=== PATIENT | female | born 1950 | race Caucasian/White ===

== ENCOUNTER 2017-05-18 11:20 | Observation (INO) | payer OTHER, MEDICARE ==
[~2017-05-18] VITALS: Ht 160 cm; Wt 53.5 kg
[~2017-05-18 11:20] MED LIST: CYCLOBENZAPRINE5 MG PO; DEGLUDEC SC; HUMALOG100 U/ML SC; INVOKANA100 MG PO; LANTUS INS100 UNITS/ SC; LEVAQUIN LEVA-750 MG PO; LEVOTHYROXIN0.175 MG PO; LIPITOR40 MG PO; LISINOPRIL AND1 TAB PO; LISINOPRIL/HCTZ1 TA3 PO; Novolog100 U/ML SC; PRAVASTATIN 40M40 MG PO; PREDNISONE 20MG20 MG PO; SYNTHROID0.2 MG PO
[2017-05-18 11:22] VITALS: BP 141/59
[2017-05-18 11:37] LABS: LYMPH # 2.7 K/mm3 (0.7-4.5); LYMPH % 22.7 % (10-50.0)
[2017-05-18 11:42] LABS: HEMOGLOBIN 16.2 g/dL (12.2-16.2)
[2017-05-18 12:01] LABS: BUN 31 mg/dL (7-18)
[2017-05-18 12:08] LABS: GFR (ESTIMATED) 56 ML/MIN (59-)
--- OUTSIDE RECORDS SUMMARY | 2017-05-18 12:20 | External Medical Summary Rpt ---
Demographics Preferred Language Telugu Marital Status Unknown Restorationism Affiliation Unknown Race Unknown Ethnic Group Unknown Author Author MIREYA Address Unknown Phone Immunization No patient found.
--- OUTSIDE RECORDS SUMMARY | 2017-05-18 12:20 | External Medical Summary Rpt ---
Demographics Preferred Language Yi Marital Status Unknown Congregational Affiliation Unknown Race Unknown Ethnic Group Unknown Author Author MIREYA Address Unknown Phone Immunization No patient found.
--- OUTSIDE RECORDS SUMMARY | 2017-05-18 12:20 | External Medical Summary Rpt ---
Author Author [employer] Organization [employer] Address Unknown Phone Unavailable Purpose Continuity of Care Document - through 2016
--- OUTSIDE RECORDS SUMMARY | 2017-05-18 12:20 | External Medical Summary Rpt ---
Author Author MIREYA Koenig, [employer] Organization [employer] Address Unknown Phone Unavailable
--- OUTSIDE RECORDS SUMMARY | 2017-05-18 12:20 | External Medical Summary Rpt ---
Author Author MIREYA Address Unknown Phone [email or web address] Purpose Continuity of Care Document - through 2016
--- OUTSIDE RECORDS SUMMARY | 2017-05-18 12:20 | External Medical Summary Rpt ---
Author Author MIREYA Address Unknown Phone Purpose Continuity of Care Document - through 2016
--- NOTE | 2017-05-18 12:25 | Emergency Room Report ---
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 PT IS TYPE 1 DIABETIC AND ADVISED THIS MORNING HER SUGAR WAS HIGH. Onset of symptoms date/time:/ or onset unknown for:MEDICAL HX UNKNOWN Treatment Prior to Arrival: 20 G IN THE LEFT AC WITH LABS DRAWN. 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 N Clinical Suspician of Infection? N Mental Status: 1 - Regular (Normal Baseline) Sepsis Risk:Low Sepsis Risk Have you (or family members/close friends) recently traveled outside the [place]? N If Yes, where/when: Have you had exposure to infectious disease within the past month? N TB? Other? Specify: Source patient, RN notes reviewed, family, RN/MD Exam Limitations no limitations Comment This is a 67-year-old lady presenting to the emergency room with bilateral shoulder pain followed by a near syncopal episode, while at work. 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 She has seen Dr. Tunde Rodriguez in the past, approximately one year ago, and she was advised to undergo a cardiac catheterization, which patient did not have yet ( due to her refusal). Cardiac Chest Pain Chest pain indicative of cardiac Yes Timing/Duration 1-3 hours, constant Severity/Quality moderate Location central Chest Pain Radiation shoulder(s) Activities at Onset light activity Modifying Factors worse with exercise, improves with lying down, improves with oxygen, worse with palpation, improves with rest Nitro Today/Relief no nitro taken today Aspirin Treatment Today no aspirin today Beta char treatment today no beta char taken Cardiac risk factors Diabetes, + family history, HTN controlled, high stress Prior Workup/Intervention no prior chest pain Timing/Duration this morning Severity severe Modifying Factors Improves With: rest. Worsens With: breathing, exertion, movement, palpatioin. ALLERGIES Coded Allergies: codeine (ITCHING 05/18/17) Home Medications Reported Medications Empagliflozin (Jardiance) 25 MG PO DAILY Biotin 1,000 MCG PO DAILY Aspirin (Adult Low Dose Aspirin EC) 81 MG PO DAILY Chromium Picolinate 400 MCG PO BID Cyanocobalamin (Vitamin B-12) (Vitamin B12) 2,500 MCG PO DAILY Cholecalciferol (Vitamin D3) (Vitamin D3) 4,000 UNIT PO DAILY MAGNESIUM OXIDE (Magnesium) 500 MG PO DAILY ZINC GLUCONATE (ZINC) 140 MG PO DAILY ASCORBIC ACID (Vitamin C) 500 MG PO DAILY Atorvastatin Calcium (Atorvastatin) 40 MG PO DAILY Levothyroxine Sodium (Levothyroxine 0.175MG) 0.175 MG PO DAILY #30 Insulin Lispro, Recombinant (Humalog 100 UNITS/ML 10ML) 0 UNITS SC ACHS #10 Insulin Glargine,Hum.rec.anlog (Basaglar Kwikpen U-100) 16 UNIT SQ QHS Prasterone (Dhea)/Calcium Carb (Dhea 50 MG Tablet) 1 EACH PO DAILY VITAMIN A (Vitamin A) 25,000 PO DAILY Vitamin E (Vitamin E 400 UNITS) 400 IUNITS PO DAILY Selenium 200 MCG PO DAILY CALCIUM CARBONATE (Calcium) 600 MG PO QHS Discontinued Reported Medications LISINOPRIL/HYDROCHLOROTHIAZIDE (Lisinopril-Hctz 20-12.5 MG Tab) 1 TAB PO BID History Medical History General CAD? No Angina: No [place]: No Hypertension? Yes Hyperlipidemia? Yes CHF? No DVT? No PE? No COPD? No Asthma? No Anemia? No GERD? No Gastric ulcers? No GI Bleed? No Hernia? Yes Thyroid Problems? Yes Hypothyroidism? Yes CVA? No Seizures? No Diabetes? Yes Insulin Dependent: Yes Insulin Pump: No Home FSBS? Yes Renal Insuffiency? No End Stage Renal Disease? No UTI? No Stones? No GB Disease: Yes Nephritic Syndrome? No Asplenia? No Hepatitis? No Sickle Cell Disease? No Arthritis? Yes Migraines? No Cataracts? Yes Glaucoma? No MRSA? No HIV? No TB? No Anxiety? No Depression? Yes Cancer? No Immunization Hx DT/Tetanus Unknown Flu 2016-17FSN Pneumonia Received In Past Surgical Hx Previous Surgery?Y EVANGELINA APPENDECTOMY HERNIATED UMBILICUS Tubal Ligation T&A TUMOR REMOVED FROM CHEST WALL Cholecystectomy Family History Family Hx Diabetes No CAD Yes Hypertension Yes Hyperlipidemia No Cancer No TB No Social History Smoking Hx Smoker: Current Every Day Smoker Tobacco: Yes Type Cigarettes Packs/day < 1 Pack Alcohol Alcohol: No Review of Systems All Other Systems Reviewed and Negative Cardiovascular chest pain Physical Exam Vital Signs Vital Signs Date Time Temp Pulse Resp B/P Pulse O2 O2 Flow FiO2 Ox Delivery Rate 05/18 1643 98.2 84 16 119/59 98 05/18 1556 84 16 119/59 98 05/18 1529 84 16 115/60 98 05/18 1442 84 16 134/71 98 05/18 1321 84 16 121/61 98 05/18 1242 84 16 116/49 98 05/18 1206 84 16 104/53 98 05/18 1122 98.2 84 16 141/59 98 General Appearance normal appearance, WD/WN Neck normal inspection, non-tender, supple, full range of motion Respiratory Status Yes: trachea midline, chest symmetrical, non tender chest. No: respiratory distress. Lung Sounds bilateral: normal breath sounds, lungs clear. Cardiovascular normal exam, regular rate/rhythm, no peripheral edema, no gallop, no JVD, no murmur, no rub, normal peripheral pulses Gastrointestinal normal bowel sounds, normal exam, non tender, soft, no organomegaly Extremities non-tender, normal range of motion, normal inspection Neurologic alert, nba player II-XII nml as tested, normal exam, oriented x 3 Mental status normal mood/affect Skin intact, normal color, warm/dry Medical Decision Making LABS/Meds/Orders Pt receiving controlled substance in ED? No Comment 1215pm - discussed with Dr. Ramirez, advised the patient presentation and findings, we will with hospitalization. Dr. carter requested cardiology consult. 12:16pm - discussed with cardiology ([facility]) who will examine patient emergency room prior to admission. Care transferred to Dr. Jennifer Ramirez at this time. I will write temporary, bridge, admission orders per hospital protocol. Upon patient's arrival to the floor in the unit nurse will contact both transition mgr rn and PCP in order to obtain full inpatient admission orders. Upon reevaluation patient is chest pain-free, denies any further complaints including shortness of breath. Results/Orders Laboratory Tests 05/18/17 1408: Creatine Kinase 158, CK-MB (CK-2) Rel Index 6.1 H, CK and CKMB Interp 9.7 *H, Troponin I < 0.02 05/18/17 1115: Hemoglobin A1c 7.3 H 05/18/17 1115: Sodium 141, Potassium 4.1, Chloride 102, Carbon Dioxide 31, BUN 31 H, Creatinine 1.0, Estimated Creat Clear 46 L, Estimated GFR (MDRD) 56 L, Glucose 141 H, Calcium 9.7, Total Bilirubin 0.5, AST 23, ALT 38, Alkaline Phosphatase 121 H, Creatine Kinase 153, CK-MB (CK-2) Rel Index 6.6 H, CK and CKMB Interp 10.1 *H, Troponin I < 0.02, Total Protein 7.6, Albumin 4.2, Globulin 3.4 H, Albumin/Globulin Ratio 1.2, WBC 11.8 H, RBC 5.12, Hgb 16.2, Hct 48.7 H, MCV 95.1, RDW 12.9, Plt Count 245, MPV 8.6, Gran % 67.1, Gran # 7.9 H, Lymphocytes % 22.7, Monocytes % 6.2, Eosinophils % 3.5, Basophils % 0.6, Lymphocytes # 2.7, Monocytes # 0.7, Eosinophils # 0.4, Basophils # 0.1, PUBS MCHC 33.1, MCH 31.4 H Current Medication Orders Sig/Dipak Start time Last Medication Dose Route Stop Time Status Admin Aspirin 81 MG DAILY 05/20 0900 AC PO Fentanyl Citrate 25 MCG PRN PRN 05/19 1315 AC IV 05/19 2300 Fentanyl Citrate 50 MCG PRN PRN 05/19 1315 AC IV 05/19 2300 Flumazenil 0.2 MG PRN PRN 05/19 1315 AC IV 05/19 2300 Heparin Sodium (Beef 5,000 UNITS PRN PRN 05/19 1315 AC Lung) IV 05/20 1302 Heparin Sodium/ 3,000 UNITS PRN PRN 05/19 1315 Sodium Chloride IV 05/20 1302 Midazolam HCl 1 MG PRN PRN 05/19 1315 AC IV 05/19 2300 Midazolam HCl 1 MG PRN PRN 05/19 1315 AC IV 05/19 2300 Naloxone HCl 0.4 MG [id number] PRN 05/19 1315 AC IV 05/19 2300 Nitroglycerin 800 MCG PRN PRN 05/19 1315 AC IV 05/20 1302 Verapamil HCl 5 MG PRN PRN 05/19 1315 AC IV 05/20 1302 Lidocaine HCl 20 ML ONCE ONE 05/19 0800 DC IJ 05/19 0801 Atorvastatin Calcium 80 MG QHS 05/18 2100 AC 05/18 PO 2146 Diagnostic Test (Pha) 1 EACH W/MEALS&HS 05/18 1700 DC FS 07/17 1659 Diagnostic Test (Pha) 1 EACH W/MEALS&HS 05/18 1700 AC 05/19 FS 07/17 1659 0929 Insulin Human [rDNA See Dose W/MEALS&HS 05/18 1700 AC 05/19 origin] Insts (1) SC 0832 Nicotine 21 MG DAILYP PRN 05/18 1245 AC TD Sodium Chloride 10 ML PRN PRN 05/18 1130 AC IV 05/19 1127 Dose Instructions: (1)Insulin Human [rDNA origin]: SEE ADMIN CRITERIA FOR LOW INTENSITY SS Orders Procedure Date/time Status Schedule Procedure 05/19 UNK Active PREPARE CONSENT 05/19 UNK Active DIET-2000 CALORIE ADA 05/18 D Complete CARDIAC ENZYMES 05/18 2000 Complete CARDIAC ENZYMES 05/18 1400 Complete OP COURTSEY MEAL 05/18 1305 Active Decision to admit 05/18 1231 Active GLYCOHEMOGLOBIN (A1C) 05/18 1217 Complete ELECTROCARDIOGRAM REQUEST 05/18 1128 Active IV SALINE LOCK 05/18 1128 Active CBC WITH AUTO DIFF 05/18 1128 Complete CARDIAC ENZYMES 05/18 1128 Complete CHEM 12 PROFILE 05/18 1128 Complete ADMIT PATIENT 05/18 UNK Active 12 LEAD EKG-BESSON (INITIAL) 05/18 UNK Active PULSE OXIMETRY REQUEST 05/18 UNK Active OXYGEN REQUEST 05/18 UNK Active VITAL SIGNS 05/18 UNK Active TRANSMISSION BUILDER 05/18 UNK Active POM NURSE HARLEY HOSE ORDER 05/18 UNK Active CODE STATUS 05/18 UNK Active PATIENT ACTIVITY ORDER 05/18 UNK Active SPECIALTY CLINIC PHYS CONSULT 05/18 UNK Active 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 of ischemic chgs, no ectopy, normal QRS, normal [place], no EKG for comparison, non-spec. ST/Twave chgs, ST elevation, ST depression, LBBB, RBBB, ectopy, abnormal Q waves XRAY/CT/US XRAY/CT/US XRAY chest XR interpretation by discussed w/radiologist Xray Results no infiltrates, normal heart size, normal lung inflation celio Consult MD Physician Consult Consult/PCP Dr. Rodriguez JORGITO Score for N-Stemi/Angina JORGITO N-STEMI SCORE JORGITO N-STEMI SCORE Response Value Age of patient 65 yrs or more 1 Number of risk factors for CAD Presence of 3 or more 1 Prior coronary artery stenosis (seen in angiography) Less than 50% 0 ST-Segment deviation on ECG (>1 min) Absent 0 Prior aspirin intake No ASA in the last 7 days 0 Severe anginal chest pain No or 1 episode in 24h 0 Elevated cardiac markers(CK-MB or troponin) Absent 0 Total 2 Risk Stratification 0-2= Low Risk Patients Departure Departure Time of Disposition 1228 Disposition Still a Patient Clinical Impression Primary Impression: Chest pain Qualifiers: Chest pain type: unspecified Qualified Code: R07.9 - Chest pain, unspecified Condition STABLE Referrals James LAURENT,[facility] (Family) ED Critical Care Critical Care No at 1101
--- NOTE | 2017-05-18 12:25 | Emergency Room Report ---
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 PT IS TYPE 1 DIABETIC AND ADVISED THIS MORNING HER SUGAR WAS HIGH. Onset of symptoms date/time:/ or onset unknown for:MEDICAL HX UNKNOWN Treatment Prior to Arrival: 20 G IN THE LEFT AC WITH LABS DRAWN. 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 N Clinical Suspician of Infection? N Mental Status: 1 - Regular (Normal Baseline) Sepsis Risk:Low Sepsis Risk Have you (or family members/close friends) recently traveled outside the [place]? N If Yes, where/when: Have you had exposure to infectious disease within the past month? N TB? Other? Specify: Source patient, RN notes reviewed, family, RN/MD Exam Limitations no limitations Comment This is a 67-year-old lady presenting to the emergency room with bilateral shoulder pain followed by a near syncopal episode, while at work. 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 She has seen Dr. Tunde Rodriguez in the past, approximately one year ago, and she was advised to undergo a cardiac catheterization, which patient did not have yet ( due to her refusal). Cardiac Chest Pain Chest pain indicative of cardiac Yes Timing/Duration 1-3 hours, constant Severity/Quality moderate Location central Chest Pain Radiation shoulder(s) Activities at Onset light activity Modifying Factors worse with exercise, improves with lying down, improves with oxygen, worse with palpation, improves with rest Nitro Today/Relief no nitro taken today Aspirin Treatment Today no aspirin today Beta char treatment today no beta char taken Cardiac risk factors Diabetes, + family history, HTN controlled, high stress Prior Workup/Intervention no prior chest pain Timing/Duration this morning Severity severe Modifying Factors Improves With: rest. Worsens With: breathing, exertion, movement, palpatioin. ALLERGIES Coded Allergies: codeine (ITCHING 05/18/17) Home Medications Reported Medications Empagliflozin (Jardiance) 25 MG PO DAILY Biotin 1,000 MCG PO DAILY Aspirin (Adult Low Dose Aspirin EC) 81 MG PO DAILY Chromium Picolinate 400 MCG PO BID Cyanocobalamin (Vitamin B-12) (Vitamin B12) 2,500 MCG PO DAILY Cholecalciferol (Vitamin D3) (Vitamin D3) 4,000 UNIT PO DAILY MAGNESIUM OXIDE (Magnesium) 500 MG PO DAILY ZINC GLUCONATE (ZINC) 140 MG PO DAILY ASCORBIC ACID (Vitamin C) 500 MG PO DAILY Atorvastatin Calcium (Atorvastatin) 40 MG PO DAILY Levothyroxine Sodium (Levothyroxine 0.175MG) 0.175 MG PO DAILY #30 Insulin Lispro, Recombinant (Humalog 100 UNITS/ML 10ML) 0 UNITS SC ACHS #10 Insulin Glargine,Hum.rec.anlog (Basaglar Kwikpen U-100) 16 UNIT SQ QHS Prasterone (Dhea)/Calcium Carb (Dhea 50 MG Tablet) 1 EACH PO DAILY VITAMIN A (Vitamin A) 25,000 PO DAILY Vitamin E (Vitamin E 400 UNITS) 400 IUNITS PO DAILY Selenium 200 MCG PO DAILY CALCIUM CARBONATE (Calcium) 600 MG PO QHS Discontinued Reported Medications LISINOPRIL/HYDROCHLOROTHIAZIDE (Lisinopril-Hctz 20-12.5 MG Tab) 1 TAB PO BID History Medical History General CAD? No Angina: No [place]: No Hypertension? Yes Hyperlipidemia? Yes CHF? No DVT? No PE? No COPD? No Asthma? No Anemia? No GERD? No Gastric ulcers? No GI Bleed? No Hernia? Yes Thyroid Problems? Yes Hypothyroidism? Yes CVA? No Seizures? No Diabetes? Yes Insulin Dependent: Yes Insulin Pump: No Home FSBS? Yes Renal Insuffiency? No End Stage Renal Disease? No UTI? No Stones? No GB Disease: Yes Nephritic Syndrome? No Asplenia? No Hepatitis? No Sickle Cell Disease? No Arthritis? Yes Migraines? No Cataracts? Yes Glaucoma? No MRSA? No HIV? No TB? No Anxiety? No Depression? Yes Cancer? No Immunization Hx DT/Tetanus Unknown Flu 2016-17FSN Pneumonia Received In Past Surgical Hx Previous Surgery?Y EVANGELINA APPENDECTOMY HERNIATED UMBILICUS Tubal Ligation T&A TUMOR REMOVED FROM CHEST WALL Cholecystectomy Family History Family Hx Diabetes No CAD Yes Hypertension Yes Hyperlipidemia No Cancer No TB No Social History Smoking Hx Smoker: Current Every Day Smoker Tobacco: Yes Type Cigarettes Packs/day < 1 Pack Alcohol Alcohol: No Review of Systems All Other Systems Reviewed and Negative Cardiovascular chest pain Physical Exam Vital Signs Vital Signs Date Time Temp Pulse Resp B/P Pulse O2 O2 Flow FiO2 Ox Delivery Rate 05/18 1643 98.2 84 16 119/59 98 05/18 1556 84 16 119/59 98 05/18 1529 84 16 115/60 98 05/18 1442 84 16 134/71 98 05/18 1321 84 16 121/61 98 05/18 1242 84 16 116/49 98 05/18 1206 84 16 104/53 98 05/18 1122 98.2 84 16 141/59 98 General Appearance normal appearance, WD/WN Neck normal inspection, non-tender, supple, full range of motion Respiratory Status Yes: trachea midline, chest symmetrical, non tender chest. No: respiratory distress. Lung Sounds bilateral: normal breath sounds, lungs clear. Cardiovascular normal exam, regular rate/rhythm, no peripheral edema, no gallop, no JVD, no murmur, no rub, normal peripheral pulses Gastrointestinal normal bowel sounds, normal exam, non tender, soft, no organomegaly Extremities non-tender, normal range of motion, normal inspection Neurologic alert, geographical historian II-XII nml as tested, normal exam, oriented x 3 Mental status normal mood/affect Skin intact, normal color, warm/dry Medical Decision Making LABS/Meds/Orders Pt receiving controlled substance in ED? No Comment 1215pm - discussed with Dr. Ramirez, advised the patient presentation and findings, we will with hospitalization. Dr. carter requested cardiology consult. 12:16pm - discussed with cardiology ([facility]) who will examine patient emergency room prior to admission. Care transferred to Dr. Jennifer Ramirez at this time. I will write temporary, bridge, admission orders per hospital protocol. Upon patient's arrival to the floor in the unit nurse will contact both scientific director and PCP in order to obtain full inpatient admission orders. Upon reevaluation patient is chest pain-free, denies any further complaints including shortness of breath. Results/Orders Laboratory Tests 05/18/17 1408: Creatine Kinase 158, CK-MB (CK-2) Rel Index 6.1 H, CK and CKMB Interp 9.7 *H, Troponin I < 0.02 05/18/17 1115: Hemoglobin A1c 7.3 H 05/18/17 1115: Sodium 141, Potassium 4.1, Chloride 102, Carbon Dioxide 31, BUN 31 H, Creatinine 1.0, Estimated Creat Clear 46 L, Estimated GFR (MDRD) 56 L, Glucose 141 H, Calcium 9.7, Total Bilirubin 0.5, AST 23, ALT 38, Alkaline Phosphatase 121 H, Creatine Kinase 153, CK-MB (CK-2) Rel Index 6.6 H, CK and CKMB Interp 10.1 *H, Troponin I < 0.02, Total Protein 7.6, Albumin 4.2, Globulin 3.4 H, Albumin/Globulin Ratio 1.2, WBC 11.8 H, RBC 5.12, Hgb 16.2, Hct 48.7 H, MCV 95.1, RDW 12.9, Plt Count 245, MPV 8.6, Gran % 67.1, Gran # 7.9 H, Lymphocytes % 22.7, Monocytes % 6.2, Eosinophils % 3.5, Basophils % 0.6, Lymphocytes # 2.7, Monocytes # 0.7, Eosinophils # 0.4, Basophils # 0.1, PUBS MCHC 33.1, MCH 31.4 H Current Medication Orders Sig/Dipak Start time Last Medication Dose Route Stop Time Status Admin Aspirin 81 MG DAILY 05/20 0900 AC PO Fentanyl Citrate 25 MCG PRN PRN 05/19 1315 AC IV 05/19 2300 Fentanyl Citrate 50 MCG PRN PRN 05/19 1315 AC IV 05/19 2300 Flumazenil 0.2 MG PRN PRN 05/19 1315 AC IV 05/19 2300 Heparin Sodium (Beef 5,000 UNITS PRN PRN 05/19 1315 AC Lung) IV 05/20 1302 Heparin Sodium/ 3,000 UNITS PRN PRN 05/19 1315 Sodium Chloride IV 05/20 1302 Midazolam HCl 1 MG PRN PRN 05/19 1315 AC IV 05/19 2300 Midazolam HCl 1 MG PRN PRN 05/19 1315 AC IV 05/19 2300 Naloxone HCl 0.4 MG [id number] PRN 05/19 1315 AC IV 05/19 2300 Nitroglycerin 800 MCG PRN PRN 05/19 1315 AC IV 05/20 1302 Verapamil HCl 5 MG PRN PRN 05/19 1315 AC IV 05/20 1302 Lidocaine HCl 20 ML ONCE ONE 05/19 0800 DC IJ 05/19 0801 Atorvastatin Calcium 80 MG QHS 05/18 2100 AC 05/18 PO 2146 Diagnostic Test (Pha) 1 EACH W/MEALS&HS 05/18 1700 DC FS 07/17 1659 Diagnostic Test (Pha) 1 EACH W/MEALS&HS 05/18 1700 AC 05/19 FS 07/17 1659 0929 Insulin Human [rDNA See Dose W/MEALS&HS 05/18 1700 AC 05/19 origin] Insts (1) SC 0832 Nicotine 21 MG DAILYP PRN 05/18 1245 AC TD Sodium Chloride 10 ML PRN PRN 05/18 1130 AC IV 05/19 1127 Dose Instructions: (1)Insulin Human [rDNA origin]: SEE ADMIN CRITERIA FOR LOW INTENSITY SS Orders Procedure Date/time Status Schedule Procedure 05/19 UNK Active PREPARE CONSENT 05/19 UNK Active DIET-2000 CALORIE ADA 05/18 D Complete CARDIAC ENZYMES 05/18 2000 Complete CARDIAC ENZYMES 05/18 1400 Complete OP COURTSEY MEAL 05/18 1305 Active Decision to admit 05/18 1231 Active GLYCOHEMOGLOBIN (A1C) 05/18 1217 Complete ELECTROCARDIOGRAM REQUEST 05/18 1128 Active IV SALINE LOCK 05/18 1128 Active CBC WITH AUTO DIFF 05/18 1128 Complete CARDIAC ENZYMES 05/18 1128 Complete CHEM 12 PROFILE 05/18 1128 Complete ADMIT PATIENT 05/18 UNK Active 12 LEAD EKG-BESSON (INITIAL) 05/18 UNK Active PULSE OXIMETRY REQUEST 05/18 UNK Active OXYGEN REQUEST 05/18 UNK Active VITAL SIGNS 05/18 UNK Active HOUSE CALLS NURSE 05/18 UNK Active POM NURSE HARLEY HOSE ORDER 05/18 UNK Active CODE STATUS 05/18 UNK Active PATIENT ACTIVITY ORDER 05/18 UNK Active SPECIALTY CLINIC PHYS CONSULT 05/18 UNK Active CM/EKG CM/data management manager Rhythm Normal Sinus Rhythm Rate 88 Ectopy No Comments No acute ischemic changes EKG rate, NSR, rhythm, no evid. of ischemic chgs, no ectopy, normal QRS, normal [place], no EKG for comparison, non-spec. ST/Twave chgs, ST elevation, ST depression, LBBB, RBBB, ectopy, abnormal Q waves XRAY/CT/US XRAY/CT/US XRAY chest XR interpretation by discussed w/radiologist Xray Results no infiltrates, normal heart size, normal lung inflation celio Consult MD Physician Consult Consult/PCP Dr. Rodriguez JORGITO Score for N-Stemi/Angina JORGITO N-STEMI SCORE JORGITO N-STEMI SCORE Response Value Age of patient 65 yrs or more 1 Number of risk factors for CAD Presence of 3 or more 1 Prior coronary artery stenosis (seen in angiography) Less than 50% 0 ST-Segment deviation on ECG (>1 min) Absent 0 Prior aspirin intake No ASA in the last 7 days 0 Severe anginal chest pain No or 1 episode in 24h 0 Elevated cardiac markers(CK-MB or troponin) Absent 0 Total 2 Risk Stratification 0-2= Low Risk Patients Departure Departure Time of Disposition 1228 Disposition Still a Patient Clinical Impression Primary Impression: Chest pain Qualifiers: Chest pain type: unspecified Qualified Code: R07.9 - Chest pain, unspecified Condition STABLE Referrals James LAURENT,[facility] (Family) ED Critical Care Critical Care No at 1101
--- OUTSIDE RECORDS SUMMARY | 2017-05-18 12:46 | External Medical Summary Rpt ---
Author Author , MIREYA GOMES Address Unknown Phone [email or web address] Purpose Continuity of Care Document - 05-18-2017 through 2016 Results Labs Lab Lab Date Result Refere Interp Status Commen Order Detail nces retati t Range on Hemoglobin A1c in Blood (05-18-2017 11:15) Hemoglo 7.3 % 0.0% High complet bin A1c 017 - ed in 11:15 7.0% Blood
--- OUTSIDE RECORDS SUMMARY | 2017-05-18 12:46 | External Medical Summary Rpt ---
Demographics Preferred Language Spanish Marital Status Unknown Sabianism Affiliation Unknown Race Unknown Ethnic Group Unknown Author Author MIREYA Address Unknown Phone Immunization No patient found.
--- OUTSIDE RECORDS SUMMARY | 2017-05-18 12:46 | External Medical Summary Rpt ---
Author Author , MIREYA GOMES Address Unknown Phone [email or web address] Purpose Continuity of Care Document - 05-18-2017 through 2016 Results Labs Lab Lab Date Result Refere Interp Status Commen Order Detail nces retati t Range on Hemoglobin A1c in Blood (05-18-2017 11:15) Hemoglo 7.3 % 0.0% High complet bin A1c 017 - ed in 11:15 7.0% Blood
--- OUTSIDE RECORDS SUMMARY | 2017-05-18 12:46 | External Medical Summary Rpt ---
Author Author MIREYA Koenig, [employer] Organization [employer] Address Unknown Phone Unavailable Results Hemoglobin A1c in Blood Observa Value Referen Units Interpr Notes Date tion ce etation Range Hemoglo 7.3 0.0 - % High < 6% May 18 bin A1c 7.0 NON-GRANT 2017 in BETIC 11:15 Blood LEVEL< AM 7% CONTROL LED DIABETI C LEVEL> 8% POORLY CONTROL LED DIABETI C LEVEL CBC W Auto Differential panel in Blood Observa Value Referen Units Interpr Notes Date tion ce etation Range Basophils 0 - 0.2 K/MM3 Normal No May 18 inform2016 [#/volume on in 11:15 AM ] in source Blood by data Automated count Basophils 0.1 - 2.0 % Normal No May 18 / inform2016 leukocyte on in 11:15 AM s in source Blood by data Automated count Eosinophi 0.0 - 0.4 K/mm3 Normal No May 18 ls 2016 [#/volume on in 11:15 AM ] in source Blood by data Automated count Eosinophi 0.1 - % Normal No May 18 ls/100 12.0 inform2016 leukocyte on in 11:15 AM s in source Blood by data Automated count Granulocy 1.8 - 7.8 K/mm3 High No May 18 khalida 2016 [#/volume on in 11:15 AM ] in source Blood by data Automated count Granulocy 37.0 - % Normal No May 18 khalida/100 80.0 2016 leukocyte on in 11:15 AM s in source Blood by data Automated count Hematocri 37.0 - % High May 18 t [Volume 47.0 2016 on in 11:15 AM Fraction] source of Blood data Hemoglobi 12.2 - g/dL No May 18 n 16.2 informati informati 2016 [Mass/vol on in on in 11:15 AM ume] in source source Blood data data Lymphocyt 0.7 - 4.5 K/mm3 Normal No May 18 es 2016 [#/volume on in 11:15 AM ] in source Unspecifi data ed specimen by Automated count Lymphocyt 10 - 50.0 % Normal No May 18 es inform2016 [#/volume on in 11:15 AM ] in source Unspecifi data ed specimen by Automated count Erythrocy 27 - 31.2 pg High No May 18 te mean 2016 corpuscul on in 11:15 AM ar source hemoglobi data n [Entitic mass] Erythrocy 31.8 - g/dl Normal No May 18 te mean 35.4 2016 corpuscul on in 11:15 AM ar source hemoglobi data n concentra tion [Mass/vol ume] by Automated count Erythrocy 82.2 - fl Normal No May 18 te mean 97.8 inform2016 corpuscul on in 11:15 AM ar volume source [Entitic data volume] by Automated count Monocytes 0.1 - 1.0 K/mm3 Normal No May 182016 [#/volume on in 11:15 AM ] in source Blood by data Automated count Monocytes 1.7 - 9.3 % Normal No May 18 /100 2016 leukocyte on in 11:15 AM s in source Blood by data Automated count Platelet 7.4 - fl Normal No May 18 mean 10.4 inform2016 volume on in 11:15 AM [Entitic source volume] data in Blood by Automated count Platelets 142 - 424 K/mm3 Normal No May 182016 [#/volume on in 11:15 AM ] in source Blood data Erythrocy 4.2 - 5.4 M/mm3 Normal No May 18 khalida informati 2016 [#/volume on in 11:15 AM ] in source Amniotic data fluid Erythrocy 11.5 - % Normal No May 18 te 17.5 informati 2016 distribut on in 11:15 AM ion width source [Entitic data volume] by Automated count Leukocyte 4.8 - K/MM3 High No May 18 s 10.8 informati 2016 [#/volume on in 11:15 AM ] in source Blood data
--- OUTSIDE RECORDS SUMMARY | 2017-05-18 12:46 | External Medical Summary Rpt ---
Demographics Preferred Language French Marital Status Unknown Mormonism Affiliation Unknown Race Unknown Ethnic Group Unknown Author Author MIREYA Address Unknown Phone Immunization No patient found.
--- NOTE | 2017-05-18 13:02 | CONSULT NOTE ---
Standard Demographics Patient Demo Date of Consultation: 05/18/17 Referring Provider: Stas Ramirez MD Reason for Consultation: Chest pain, Near syncope PRIMARY DIAGNOSIS: chest pain, low BP, weakness Problem list Problem list: 1. History of HTN A. Echo, 07/2016, shows normal LV size and function. Normal RV size and function. Elevated RVSP at 40-50 mm Hg. No significant valve disease. 2. History of syncope A. CNI, 07/2016, 20-49% ICA stenosis bilaterally 3. Chest pain A. GXT myoview, 07/2016, 6 min on Aston protocol with SOA and fatigue. No chest pain or significant arrhythmias. Moderate risk with mid anteroapical ischemia and normal EF. 4. Tobacco use 5. DM, on insulin 6. HLD, on statin 7. Hypothyroidism, on replacement History of present illness: History of present illness: 67 yo WF with known DM, tobacco use and history of abnormal stress test last year, presented to ER via EMS for bilateral shoulder pain, chest pressure and "weird feeling" that she might pass out while at work. Noted to have low systolic BP in the 70's which responded to IVF. Pt relates recurrent symptoms as noted above over the last few months which have not resolved with discontinuation of BP meds. EKG is sinus without acute changes compared to previous tracings. Initial troponin is normal. Cardiology consulted for further evaluation. Past Medical History: General: Hypertension Yes CVA No Seizures No TB No COPD No Asthma No Diabetes Yes Insulin Dependent Yes Insulin Pump No Angina No PR No Hyperlipidemia Yes Urinary No Cancer No Rheumatic H.D. No Ulcers No MRSA No GB Disease Yes Past Surgical HX: Previous Surgery?Y EVANGELINA APPENDECTOMY HERNIATED UMBILICUS Tubal Ligation T&A TUMOR REMOVED FROM CHEST WALL Cholecystectomy Allergies Coded Allergies: codeine (ITCHING 05/18/17) Home medications: Reported Medications Empagliflozin (Jardiance) 25 MG PO DAILY Biotin 1,000 MCG PO DAILY Aspirin (Adult Low Dose Aspirin EC) 81 MG PO DAILY Chromium Picolinate 400 MCG PO BID Cyanocobalamin (Vitamin B-12) (Vitamin B12) 2,500 MCG PO DAILY Cholecalciferol (Vitamin D3) (Vitamin D3) 4,000 UNIT PO DAILY MAGNESIUM OXIDE (Magnesium) 500 MG PO DAILY ZINC GLUCONATE (ZINC) 140 MG PO DAILY ASCORBIC ACID (Vitamin C) 500 MG PO DAILY Atorvastatin Calcium (Atorvastatin) 40 MG PO DAILY Levothyroxine Sodium (Levothyroxine 0.175MG) 0.175 MG PO DAILY #30 Insulin Lispro, Recombinant (Humalog 100 UNITS/ML 10ML) 0 UNITS SC ACHS #10 Insulin Glargine,Hum.rec.anlog (Ashleyaglar Lissapen U-100) 16 UNIT SQ QHS Prasterone (Dhea)/Calcium Carb (Dhea 50 MG Tablet) 1 EACH PO DAILY VITAMIN A (Vitamin A) 25,000 PO DAILY Vitamin E (Vitamin E 400 UNITS) 400 IUNITS PO DAILY Selenium 200 MCG PO DAILY CALCIUM CARBONATE (Calcium) 600 MG PO QHS Discontinued Reported Medications LISINOPRIL/HYDROCHLOROTHIAZIDE (Lisinopril-Hctz 20-12.5 MG Tab) 1 TAB PO BID Current Medications: Current Medications Nicotine 21 MG DAILYP PRN TD (UNV) Sodium Chloride 10 ML PRN PRN IV Immunization HX DT/Tetanus Unknown Flu 2015-FSN Pneumonia RECEIVED IN PAST Family history Family HX Family Hx Insignificant No Diabetes No CAD Yes Hypertension Yes Hyperlipidemia No Cancer No TB No Social Hx: Smoking HX Tobacco Yes Type Cigarettes Packs/day < 1 PACK Alcohol Alcohol: No Hx of Drug Use Drug Use? No Patien't marital status is Patient's support system is good Review of systems: Constitutional weakness. Respiratory SOB with excertion. Cardiovascular see HPI, chest pain, syncope Gastrointestinal/Abdominal No no symptoms reported Genitourinary No: no symptoms reported. Musculoskeletal neck pain. Neurological No: no symptoms reported. Exam: Admission Vital Signs: 1ST Vital Signs Result Date Time Pulse Ox 98 05/18 1122 B/P 141/59 05/18 1122 Temp 98.2 05/18 1122 Pulse 84 05/18 1122 Resp 16 05/18 112 Last Vital Signs: Vital Signs Result Date Time Pulse Ox 98 05/18 1242 B/P 116/49 05/18 1242 Pulse 84 05/18 1242 Resp 05/18 1242 Temp 98.2 05/18 1122 Exam General appearance: alert, awake, no acute distress Neck: no carotid bruit, no JVD Cardiovascular: regular rate & rhythm, no murmur Respiratory: diminished breath sounds ABD: soft, no tenderness Extremities: moves all, no peripheral edema Neuro: alert, intact, oriented, speech clear Laboratory data: Laboratory Tests 05/18/17 1115: Hemoglobin A1c 7.3 H 05/18/17 1115: Sodium 141, Potassium 4.1, Chloride 102, Carbon Dioxide 31, BUN 31 H, Creatinine 1.0, Estimated Creat Clear 46 L, Estimated GFR (MDRD) 56 L, Glucose 141 H, Calcium 9.7, Total Bilirubin 0.5, AST 23, ALT 38, Alkaline Phosphatase 121 H, Creatine Kinase 153, CK-MB (CK-2) Rel Index 6.6 H, CK and CKMB Interp 10.1 *H, Troponin I < 0.02, Total Protein 7.6, Albumin 4.2, Globulin 3.4 H, Albumin/Globulin Ratio 1.2, WBC 11.8 H, RBC 5.12, Hgb 16.2, Hct 48.7 H, MCV 95.1, RDW 12.9, Plt Count 245, MPV 8.6, Gran % 67.1, Gran # 7.9 H, Lymphocytes % 22.7, Monocytes % 6.2, Eosinophils % 3.5, Basophils % 0.6, Lymphocytes # 2.7, Monocytes # 0.7, Eosinophils # 0.4, Basophils # 0.1, PUBS MCHC 33.1, MCH 31.4 H Plan: Assessment: 1. Bilateral shoulder pain, chest pressure and near syncope in patient with IDDM , tobacco use and abnormal stress test 07/2016 with recommendation for cardiac cath at that time. Recommendation for admission for unstable angina pectoris/ worsening CAD to telemetry and BP monitoring, serial cardiac enzymes and plans for cardiac cath in AM. Repeat carotid ultrasound due to near syncope with known mild to moderate GINA. Continue ASA 81 mg daily and lipitor. Due to low BP will hold on starting TRICIA, Norvasc or BB at this time. 2. IDDM, Hgb A1C is 7.3 3. Tobacco use 4. Hyperlipidemia, on statin Recommendations: See above. at 1612
[2017-05-18] MEDS ORDERED: JARDIANCE25 MG PO (14:15)
[2017-05-18] MEDS ORDERED: ADULT LOW DOSE81 MG PO (14:16)
[2017-05-18] MEDS ORDERED: BIOTIN1000 MC1 PO (14:16)
[2017-05-18] MEDS ORDERED: CHROMIUM PICO400 MCG PO (14:17)
[2017-05-18] MEDS ORDERED: VITAMIN B122500 MC1 PO (14:18)
[2017-05-18] MEDS ORDERED: VITAMIN D34000 UNIT PO (14:19)
[2017-05-18] MEDS ORDERED: PHARMASSURE MA500 MG PO (14:19)
[2017-05-18] MEDS ORDERED: PHARMASSURE CHE30 MG PO (14:21)
[2017-05-18] MEDS ORDERED: ASCORBIC ACID500 M2 PO (14:21)
--- NOTE | 2017-05-18 16:46 | HISTORY AND PHYSICAL REPORT ---
History and Physical ([facility]) Date of admission: 05/18/17 Chief complaint: bilateral shoulder and neck pain History: History of Present Illness: Ms Barriga is a 67 year WF with known DM, tobacco use and history of abnormal stress test last year, presented to ER via EMS for bilateral shoulder pain radiating into her neck, chest pressure and "weird feeling" that she might pass out while at work. She denies associated SOB and palpitations, but did experience nausea without vomiting. Noted to have low systolic BP in the 70's which responded to IVF. Pt relates recurrent symptoms as noted above over the last few months which have not resolved with discontinuation of BP meds. She had been feeling fine prior to this AM episode. She has her usual cough sometimes productive of clear sputum. She denies fever, diarrhea, and states her BS have been running good. She has been seen by cardiology. EKG is sinus without acute changes compared to previous tracings. Initial troponin is normal. She will be admitted for further evaluation and treatment with plans for cardiac cath in the AM. Currently she is comfortable and BP has returned to normal. Past Medical History: Medical History: CAD? No Angina: No SD: No Hypertension? Yes Hyperlipidemia? Yes CHF? No DVT? No PE? No COPD? No Asthma? No Anemia? No GERD? No Gastric ulcers? Yes GI Bleed? No Hernia? Yes Thyroid Problems? Yes Hypothyroidism? Yes CVA? No Seizures? No Diabetes? Yes Insulin Dependent: Yes Insulin Pump: No Home FSBS? Yes Renal Insuffiency? No UTI? No Stones? No GB Disease: Yes Nephritic Syndrome? No Asplenia? No Hepatitis? No Sickle Cell Disease? No Arthritis? Yes Migraines? No Cataracts? Yes Glaucoma? No MRSA? No HIV? No TB? No Anxiety? No Depression? Yes Cancer? No Surgical history: Previous Surgery?Y EVANGELINA APPENDECTOMY HERNIATED UMBILICUS Tubal Ligation T&A TUMOR REMOVED FROM CHEST WALL Cholecystectomy Allergies: Coded Allergies: codeine (ITCHING 09/05/16) Family History: Family history: Postive for: DM. Social History: Smoking Hx Tobacco: Yes Smoker: Current Every Day Smoker Type: Cigarettes Packs/day: < 1 Pack Are you exposed to second hand Yes Alcohol: Alcohol: No Hx of Drug Use: Drug Use? No Patient's support system is: excellent Review of Systems: Patient unresponsive? No Cardiovascular Positive for: chest pain. No: edema, orthopnea, palpitations. Respiratory Positive for: productive cough (sputum). No: shortness of air. GI No: GERD, abdominal pain, constipation, diarrhea, hematemeis, melena, nausea. (female) No: frequency, hematuria. Neurological No: dizziness, headache, seizure, syncope. Musculoskeletal No: joint pain. Physical Exam: Vital signs: 1ST Vital Signs Result Date Time Pulse Ox 98 05/18 1122 B/P 141/59 05/18 1122 Temp 98.2 05/18 1122 Pulse 84 05/18 1122 Resp 16 05/18 1122 Exam: General appearance: alert, no acute distress Eyes: anicteric, pupils reactive to light ENT: mucous membranes moist Neck: no carotid bruit, lymphadenopathy (absent), thyroid (normal) Cardiovascular: regular rate & rhythm Respiratory: diminished BS posteriorly ABD: non-distended, soft, no tenderness, bowel sounds present Extremities: no peripheral edema, warm, pedal pulses (present), no calf tenderness Neuro: alert, intact, oriented, speech clear Lab data: Labs: Laboratory Tests 05/18/17 1115: Hemoglobin A1c 7.3 H 05/18/17 1115: Sodium 141, Potassium 4.1, Chloride 102, Carbon Dioxide 31, BUN 31 H, Creatinine 1.0, Estimated Creat Clear 46 L, Estimated GFR (MDRD) 56 L, Glucose 141 H, Calcium 9.7, Total Bilirubin 0.5, AST 23, ALT 38, Alkaline Phosphatase 121 H, Creatine Kinase 153, CK-MB (CK-2) Rel Index 6.6 H, CK and CKMB Interp 10.1 *H, Troponin I < 0.02, Total Protein 7.6, Albumin 4.2, Globulin 3.4 H, Albumin/Globulin Ratio 1.2, WBC 11.8 H, RBC 5.12, Hgb 16.2, Hct 48.7 H, MCV 95.1, RDW 12.9, Plt Count 245, MPV 8.6, Gran % 67.1, Gran # 7.9 H, Lymphocytes % 22.7, Monocytes % 6.2, Eosinophils % 3.5, Basophils % 0.6, Lymphocytes # 2.7, Monocytes # 0.7, Eosinophils # 0.4, Basophils # 0.1, PUBS MCHC 33.1, MCH 31.4 H Radiology results: Results: pending Diagnosis(es): 1. Chest pain 2. Hypothyroidism 3. Type 1 diabetes mellitus 4. COPD (chronic obstructive pulmonary disease) 5. Cigarette smoker Plan: will repeat cardiac enzymes; cardiac cath planned for in the AM; Telemetry; monitor BP and BS (Sarah Barber APRN) Past Medical History: Medications: Reported Medications Empagliflozin (Jardiance) 25 MG PO Biotin 1,000 MCG PO DAILY Aspirin (Adult Low Dose Aspirin EC) 81 MG PO Chromium Picolinate 400 MCG PO BID Cyanocobalamin (Vitamin B-12) (Vitamin B12) 500 MCG PO DAILY Cholecalciferol (Vitamin D3) (Vitamin D3) 4,000 UNIT PO DAILY MAGNESIUM OXIDE (Magnesium) 500 MG PO DAILY ZINC GLUCONATE (ZINC) 140 MG PO DAILY ASCORBIC ACID (Vitamin C) 500 MG PO DAILY Atorvastatin Calcium (Atorvastatin) 40 MG PO DAILY Levothyroxine Sodium (Levothyroxine 0.175MG) 0.175 MG PO DAILY #30 Insulin Lispro, Recombinant (Humalog 100 UNITS/ML 10ML) 0 UNITS SC ACHS #10 Insulin Glargine,Hum.rec.anlog (Basaglar Kwikpen U-100) 16 UNIT SQ QHS Prasterone (Dhea)/Calcium Carb (Dhea 50 MG Tablet) 1 EACH PO DAILY VITAMIN A (Vitamin A) 25,000 PO DAILY Vitamin E (Vitamin E 400 UNITS) 400 IUNITS PO DAILY Selenium 200 MCG PO DAILY CALCIUM CARBONATE (Calcium) 600 MG PO QHS Discontinued Reported Medications LISINOPRIL/HYDROCHLOROTHIAZIDE (Lisinopril-Hctz 20-12.5 MG Tab) 1 TAB PO BID Diagnosis(es): 1. Chest pain Status: Acute 2. Type 1 diabetes mellitus Status: Chronic 3. Hypothyroidism Status: Chronic 4. COPD (chronic obstructive pulmonary disease) Status: Chronic 5. Cigarette smoker Status: Chronic Plan: Patient seen and agree with above note. Plan to start D5 1/2 NS with 20 KCL @ 75 mL/hr whenever patient is made NPO for left heart cath scheduled for tomorrow. (Stas Ramirez MD) at 1642 at 1156
[2017-05-18 17:00] VITALS: BP 114/59
[2017-05-18 17:12] VITALS: BP 114/59
[2017-05-18] MEDS ORDERED: BASAGLAR K100 UNIT/1 SQ (18:00)
[2017-05-18] MEDS ORDERED: DHEA 50 MG TAB1 EACH PO (18:03)
[2017-05-18] MEDS ORDERED: VITAMIN E 400400 IU PO (18:12)
[2017-05-18] MEDS ORDERED: VITAMIN A PO (18:12)
[2017-05-18] MEDS ORDERED: NATURE'S BLEN200 MCG PO (18:14)
[2017-05-18] MEDS ORDERED: CALCIUM600 M1 PO (18:28)
[2017-05-18 20:18] VITALS: BP 139/65
[2017-05-18 20:30] VITALS: BP 139/65
[2017-05-19] VITALS (15 sets, daily range): BP systolic 96–149; BP diastolic 42–87
--- NOTE | 2017-05-19 00:20 | RADIOLOGY REPORT PS360 ---
CHEST(2 VIEWS-NOT PORTABLE) HISTORY: chest pain; tob use Patient Age: 67 years: Female Ordering Physician: Stas Ramirez MD TECHNIQUE: 2 view chest COMPARISON : Portable chest September 2016. Also AP chest from March 2016 & September 2014 FINDINGS COPD. Hyperexpansion. The diaphragm. Increased AP diameter. No focal pneumonia. . No significant change since studies dating back to September 2014. Blunting at CP angles was seen back in that time and unchanged. Heart kamron and mediastinal structures stable. Fracture of distal left clavicle September 2016 account for the mild osseous deformity. IMPRESSION: Stable chest nothing definite acute COPD.
--- NOTE | 2017-05-19 07:09 | PHARMACY CLINIC NOTE ---
Patient Demographics Patient Demographics Admission date: 05/18/17 Date: 05/19/17 Time: 0708 Allergies Coded Allergies: codeine (ITCHING 05/18/17) HEIGHT- FT: 5 IN: 3.00 K.524 VTE General Information Labs: Laboratory Tests 05/18 1115 Hematology Hgb (12.2 - 16.2 g/dL) 16.2 Hct (37.0 - 47.0 %) 48.7 H Plt Count (142 - 424 K/mm3) 245 Disclaimer The following section includes nursing documentation that has been pulled in for pharmacy review. Patient's VTE score: 2 Patient's VTE Risk: VERY LOW RISK Clinical trial participant? No VTE prophylaxis [id number] VTE prophylaxis ordered? Yes Type of prophylaxis/treatment: HARLEY at 0708
--- NOTE | 2017-05-19 07:42 | ACUTE CARE PROGRESS NOTE (QUA) ---
See Addendum Progress Notes Subjective Date 05/19/17 Time 0731 Note Patient is anxious; states her BS was 300+ this AM and IV with sugar just started ; she can feel her BS ncreasing; has not received any insulin as yet; remains NPO for cath. Discussed with nurse and she will cover with insulin now; patient did not want to take the 8 Units as per sliding scale but agrees to 6 UnITS; will recheck in 1 hour; IV changed to NS at 75 ml/hour and D5 discontinued. Patient states that she slept last night. Denies any further chest or shoulder pain; has not been SOB; has been eating without problems. Objective Findings Laboratory Tests 05/19/17 0612: POC Glucose 327 *H 05/18/17 2142: POC Glucose 149 H 05/18/17 2000: Creatine Kinase 134, CK-MB (CK-2) Rel Index 5.7 H, CK and CKMB Interp 7.7 H, Troponin I < 0.02 05/18/17 1713: POC Glucose 222 H 05/18/17 1408: Creatine Kinase 158, CK-MB (CK-2) Rel Index 6.1 H, CK and CKMB Interp 9.7 *H, Troponin I < 0.02 05/18/17 1115: Hemoglobin A1c 7.3 H 05/18/17 1115: Sodium 141, Potassium 4.1, Chloride 102, Carbon Dioxide 31, BUN 31 H, Creatinine 1.0, Estimated Creat Clear 46 L, Estimated GFR (MDRD) 56 L, Glucose 141 H, Calcium 9.7, Total Bilirubin 0.5, AST 23, ALT 38, Alkaline Phosphatase 121 H, Creatine Kinase 153, CK-MB (CK-2) Rel Index 6.6 H, CK and CKMB Interp 10.1 *H, Troponin I < 0.02, Total Protein 7.6, Albumin 4.2, Globulin 3.4 H, Albumin/Globulin Ratio 1.2, WBC 11.8 H, RBC 5.12, Hgb 16.2, Hct 48.7 H, MCV 95.1, RDW 12.9, Plt Count 245, MPV 8.6, Gran % 67.1, Gran # 7.9 H, Lymphocytes % 22.7, Monocytes % 6.2, Eosinophils % 3.5, Basophils % 0.6, Lymphocytes # 2.7, Monocytes # 0.7, Eosinophils # 0.4, Basophils # 0.1, PUBS MCHC 33.1, MCH 31.4 H Vital Signs Date Time Temp Pulse Resp B/P Pulse O2 O2 Flow FiO2 Ox Delivery Rate 05/19 0401 98.9 98 16 143/65 90 ROOM AIR 05/19 0015 97.8 102 16 139/52 93 ROOM AIR 05/18 2030 97.2 76 16 139/65 93 05/18 2018 97.2 76 16 139/65 93 ROOM AIR 05/18 1800 2 05/18 1800 2 05/18 1800 92 2 05/18 1800 92 ROOM AIR 05/18 1712 99.3 90 16 114/59 91 ROOM AIR 05/18 1700 90 05/18 1700 99.3 90 16 114/59 05/18 1700 91 ROOM AIR 05/18 1643 98.2 84 16 119/59 98 05/18 1556 84 16 119/59 98 05/18 1529 84 16 115/60 98 05/18 1442 84 16 134/71 98 05/18 1321 84 16 121/61 98 05/18 1242 84 16 116/49 98 05/18 1206 84 16 104/53 98 05/18 1122 98.2 84 16 141/59 98 Current Medications Aspirin 81 MG DAILY PO Fentanyl Citrate 25 MCG PRN PRN IV Fentanyl Citrate 50 MCG PRN PRN IV Flumazenil 0.2 MG PRN PRN IV Heparin Sodium (Beef Lung) 5,000 UNITS PRN PRN IV Heparin Sodium/Sodium Chloride 3,000 UNITS PRN PRN IV Midazolam HCl 1 MG PRN PRN IV Midazolam HCl 1 MG PRN PRN IV Naloxone HCl 0.4 MG [id number] PRN IV Nitroglycerin 800 MCG PRN PRN IV Verapamil HCl 5 MG PRN PRN IV Lidocaine HCl 20 ML ONCE ONE IJ Sodium Chloride 1,000 ML .[id number] IV (UNV) Potassium Chloride/Dextrose/Sod Cl 1,000 ML .STK-MED ONE IV (DC) Atorvastatin Calcium 80 MG QHS PO Insulin Glargine 12 UNITS QHS SC (UNV) Diagnostic Test (Pha) 1 EACH W/MEALS&HS FS (DC) Diagnostic Test (Pha) 1 EACH W/MEALS&HS FS Insulin Human [rDNA origin] SEE ADMIN CRITERIA FOR LOW INTENSITY SS W/MEALS&HS SC Nicotine 21 MG DAILYP PRN TD Sodium Chloride 10 ML PRN PRN IV 05/18 1500 05/18 2300 05/19 0700 Intake Total Output Total Balance Patient 115 lb 118 lb Weight Last VS-Temp:98.9 B/P:143/65 Pulse:98 Resp:16 SaO2:90 ROOM AIR Last weight lbs:118 oz:0 K.524 Method:Floor Scales CXR 05/19/17 FINDINGS COPD. Hyperexpansion. The diaphragm. Increased AP diameter. No focal pneumonia. . No significant change since studies dating back to September 2014. Blunting at CP angles was seen back in that time and unchanged. Heart kamron and mediastinal structures stable. Fracture of distal left clavicle September 2016 account for the mild osseous deformity. IMPRESSION: Stable chest nothing definite acute COPD. Exam General appearance: alert, no acute distress, anxious Cardiovascular: regular rate & rhythm Respiratory: few scattered rhonchi ABD: soft, no tenderness, bowel sounds present Extremities: no peripheral edema, no calf tenderness, dry, intact, erythemic skin on right anterior lower leg Neuro: alert, oriented, speech clear Assessment/Plan Problem List 1. Chest pain Status: Acute 2. Type 1 diabetes mellitus Status: Chronic 3. Hypothyroidism Status: Chronic 4. COPD (chronic obstructive pulmonary disease) Status: Chronic 5. Cigarette smoker Status: Chronic Patient condition Stable Plan: for cardiac cath this AM This inpt stay is expected to cross 2 MNs from start of care Yes at 0741
--- NOTE | 2017-05-19 15:18 | RADIOLOGY REPORT PS360 ---
CARDIAC CATHETERIZATION DATE OF CATHETERIZATION:05/19/2017 2:48 PM PROCEDURES: 1. Left heart catheterization 2. Left ventriculogram 3. Selective coronary angiogram 4. FFR to the LAD INDICATION FOR TEST: 1. Abnormal Myoview anterior apical ischemia 2. Admission to hospital with possible unstable angina 3. Numerous risk factors for coronary disease Informed consent was obtained prior to the procedure. COMPLICATIONS: None ESTIMATED BLOOD LOSS: Less than 10 ml. TECHNIQUE: One percent lidocaine used to anesthetize the right anterior aspect of the wrist. The right radial artery was accessed via the Seldinger technique. A 6 Palestinian sheath was placed in the right radial artery. 2.5 mg of verapamil, 800 mcg of nitroglycerin and 5000 U Heparin were given through the arterial sheath. The Tig catheter was also used to perform left heart catheterization, selective coronary angiogram and left ventriculogram.. At the end of the diagnostic procedure the ACT measured 367 seconds. A JL 3 guide catheter was then placed in the ascending aorta and FFR wire was normalized. The guide catheter was used intubate the left main artery and the wire was placed in the distal LAD. Adenosine was infused in the FFR index dropped to 0.85. This does not meet hemodynamic significance therefore the apparatus was removed the sheath was removed good hemostasis was achieved using TR banding patient transferred to the postop holding area in stable condition ANGIOGRAPHIC RESULTS: 1. The left main artery normal 2. The left anterior descending artery has a proximal long eccentric 50% stenosis 3. The circumflex artery is a large dominant vessel and has proximal 30% stenoses mid vessel diffuse 20% stenoses 4. The right coronary artery is a nondominant vessel yet still large and has proximal eccentric 30% stenoses which extend although into the mid segment. 5. The MCCOY ventriculogram reveals normal ejection fraction 65% 6. The left ventricular end-diastolic pressure 15 mmHg IMPRESSION: 1. Angiographically indeterminate proximal LAD disease which produced an FFR index of 0.85 2. Mild to moderate disease in the dominant circumflex artery and large nondominant right coronary artery 3. Normal ejection fraction 4. Mildly elevated LVEDP PLAN: 1. LDL less than 55 2. Beta blockers in order to slow down tachycardia 3. Tobacco cessation 4. Physical therapy 5. Control of associated risk factors
[2017-05-20] VITALS: BP 117/54
[2017-05-20 04:28] VITALS: BP 119/56
--- NOTE | 2017-05-20 07:33 | ACUTE CARE PROGRESS NOTE (QUA) ---
Progress Notes Subjective Date 05/20/17 Time 0729 Note 67 yo WF in bed in NAD. No complaints overnight. Denies any SOA or wheezing. Objective Findings Last VS-Temp:98.2 B/P:119/56 Pulse:80 Resp:16 SaO2:92 ROOM AIR Last weight lbs:118 oz:0 K.524 Method:Floor Scales Exam General appearance: alert, awake, no acute distress Cardiovascular: regular rate & rhythm Respiratory: diminished breath sounds Neuro: alert, intact, no deficit, oriented Reviewed: medications, vital signs, lab results Assessment/Plan Problem List 1. Chest pain Status: Acute Qualifiers: Chest pain type: unspecified Qualified Code: R07.9 - Chest pain, unspecified 2. Type 1 diabetes mellitus Status: Chronic 3. Hypothyroidism Status: Chronic 4. COPD (chronic obstructive pulmonary disease) Status: Chronic 5. Cigarette smoker Status: Chronic 6. CAD (coronary artery disease) Qualifiers: Coronary Disease-Associated Artery/Lesion type: [place] artery [place] vs. transplanted heart: [place] heart Associated angina: with stable angina Qualified Code: I25.118 - Atherosclerotic heart disease of [place] coronary artery with other forms of angina pectoris Patient condition Stable Plan: Tolerating metoprolol without respiratory complaint. OK for discharge home from cardiology standpoint. Tobacco cessation encouraged. Continue ASA and atorvastatin. Follow up in one week. This inpt stay is expected to cross 2 MNs from start of care Yes at 0755
--- NOTE | 2017-05-20 07:33 | ACUTE CARE PROGRESS NOTE (QUA) ---
Progress Notes Subjective Date 05/20/17 Time 0729 Note 67 yo WF in bed in NAD. No complaints overnight. Denies any SOA or wheezing. Objective Findings Last VS-Temp:98.2 B/P:119/56 Pulse:80 Resp:16 SaO2:92 ROOM AIR Last weight lbs:118 oz:0 K.524 Method:Floor Scales Exam General appearance: alert, awake, no acute distress Cardiovascular: regular rate & rhythm Respiratory: diminished breath sounds Neuro: alert, intact, no deficit, oriented Reviewed: medications, vital signs, lab results Assessment/Plan Problem List 1. Chest pain Status: Acute Qualifiers: Chest pain type: unspecified Qualified Code: R07.9 - Chest pain, unspecified 2. Type 1 diabetes mellitus Status: Chronic 3. Hypothyroidism Status: Chronic 4. COPD (chronic obstructive pulmonary disease) Status: Chronic 5. Cigarette smoker Status: Chronic 6. CAD (coronary artery disease) Qualifiers: Coronary Disease-Associated Artery/Lesion type: [place] artery [place] vs. transplanted heart: [place] heart Associated angina: with stable angina Qualified Code: I25.118 - Atherosclerotic heart disease of [place] coronary artery with other forms of angina pectoris Patient condition Stable Plan: Tolerating metoprolol without respiratory complaint. OK for discharge home from cardiology standpoint. Tobacco cessation encouraged. Continue ASA and atorvastatin. Follow up in one week. This inpt stay is expected to cross 2 MNs from start of care Yes at 0784
[2017-05-20 07:47] VITALS: BP 136/58
--- NOTE | 2017-05-20 08:01 | ACUTE CARE PROGRESS NOTE (QUA) ---
Progress Notes Subjective Date 05/20/17 Time 0754 Note Ready to go home. Slept well. Eating without problems. No further chest pain; no SOB. Ambulating without problems Objective Findings Laboratory Tests 05/20/17 0651: POC Glucose 109 05/19/17 2156: POC Glucose 272 H 05/19/17 1449: POC Activ Clotting Time 367 *H 05/19/17 1341: POC Glucose 211 H 05/19/17 1135: POC Glucose 155 H 05/19/17 0928: POC Glucose 192 H 05/19/17 0827: POC Glucose 306 *H Vital Signs Date Time Temp Pulse Resp B/P Pulse O2 O2 Flow FiO2 Ox Delivery Rate 05/20 0747 98.5 90 16 136/58 91 ROOM AIR 05/20 0428 98.2 80 16 119/56 92 ROOM AIR 05/20 0000 98.6 80 16 117/54 91 ROOM AIR 05/19 2230 98.8 98 16 136/62 92 05/19 2130 98.2 110 16 107/60 97 05/19 2030 98.4 100 16 137/66 97 / 1930 98.2 101 16 131/72 96 / 1930 98.4 105 16 137/64 92 08/15 1830 98.4 105 16 137/64 92 /15 1800 98.5 110 16 133/75 93 /15 1730 98.4 116 16 141/73 93 /15 1700 98.4 112 16 149/87 93 /15 1630 98.7 111 16 120/68 92 /15 1615 98.3 106 16 125/58 94 /15 1612 97.7 109 18 104/41 93 ROOM AIR / 1611 97.7 105 18 102/43 93 ROOM AIR 08/15 1600 98.4 106 16 129/55 92 /15 1549 97.7 107 18 94/42 93 ROOM AIR /15 1548 97.7 92 18 102/79 93 ROOM AIR /15 1547 108 18 96/39 08/15 1546 97.7 108 18 96/39 93 /15 1533 97.7 108 18 96/39 93 ROOM AIR / 1532 97.7 111 18 96/52 91 ROOM AIR 08/ 1448 18 08/15 1200 97.7 106 18 96/42 91 ROOM AIR 08/ 0843 97.5 107 22 136/68 92 05/19 0800 97.5 107 22 136/68 92 ROOM AIR Current Medications Aspirin 81 MG DAILY PO Metoprolol Tartrate 12.5 MG BID PO Levothyroxine Sodium 0.175 MG DAILY PO Iopamidol 100 ML ONCE ONE IV (DC) Adenosine 90 MG ONCE ONE IV (DC) Sodium Chloride 60 ML Ticagrelor 180 MG ONCE ONE PO (DC) Ticagrelor 0 .STK-MED ONE PO (DC) Adenosine 0 .STK-MED ONE IV (DC) Diphenhydramine HCl 50 MG ONCE ONE IV (DC) Sodium Chloride 10 ML PRN PRN IV Sodium Chloride 1,000 ML .Q25H IV Verapamil HCl 0 .STK-MED ONE .ROUTE (DC) Heparin Sodium/Sodium Chloride 1,500 ML .STK-MED ONE IV (DC) Nitroglycerin 0 .STK-MED ONE IV (DC) Diphenhydramine HCl 0 .STK-MED ONE .ROUTE (DC) Heparin Sodium (Beef Lung) 0 .STK-MED ONE .ROUTE (DC) Lidocaine HCl 0 .STK-MED ONE .ROUTE (DC) Sodium Chloride 1,000 ML .STK-MED ONE IV (DC) Fentanyl Citrate 25 MCG PRN PRN IV (DC) Fentanyl Citrate 50 MCG PRN PRN IV (DC) Flumazenil 0.2 MG PRN PRN IV (DC) Heparin Sodium (Beef Lung) 5,000 UNITS PRN PRN IV Heparin Sodium/Sodium Chloride 3,000 UNITS PRN PRN IV Midazolam HCl 1 MG PRN PRN IV (DC) Midazolam HCl 1 MG PRN PRN IV (DC) Naloxone HCl 0.4 MG [id number] PRN IV (DC) Nitroglycerin 800 MCG PRN PRN IV Verapamil HCl 5 MG PRN PRN IV Lidocaine HCl 20 ML ONCE ONE IJ (DC) Sodium Chloride 1,000 ML .[id number] IV Atorvastatin Calcium 80 MG QHS PO Insulin Glargine 12 UNITS QHS SC Diagnostic Test (Pha) 1 EACH W/MEALS&HS FS Insulin Human [rDNA origin] SEE ADMIN CRITERIA FOR LOW INTENSITY SS W/MEALS&HS SC Nicotine 21 MG DAILYP PRN TD Sodium Chloride 10 ML PRN PRN IV (DC) 05/19 1500 05/19 2300 05/20 0700 Intake Total 1949 566 Output Total Balance 1949 566 Intake, IV 1109 566 Intake, Oral 840 Output, Stool Last VS-Temp:98.5 B/P:136/58 Pulse:90 Resp:16 SaO2:91 ROOM AIR Last weight lbs:118 oz:0 K.524 Method:Floor Scales Exam General appearance: alert, no acute distress Cardiovascular: regular rate & rhythm, monitor showing SR in 80's Respiratory: clear to auscultation (bilat anterior and posterior) Extremities: no peripheral edema, no calf tenderness Neuro: alert, oriented, speech clear Assessment/Plan Problem List 1. Chest pain Status: Acute 2. Type 1 diabetes mellitus Status: Chronic 3. Hypothyroidism Status: Chronic 4. COPD (chronic obstructive pulmonary disease) Status: Chronic 5. Cigarette smoker Status: Chronic 6. CAD (coronary artery disease) Patient condition Improved Plan: home today with FU with cardiology as well as with [facility]. Patient states she plans not to smoke. This inpt stay is expected to cross 2 MNs from start of care No (Sarah Barber APRN) Assessment/Plan Problem List 1. Chest pain Status: Acute 2. Type 1 diabetes mellitus Status: Chronic 3. Hypothyroidism Status: Chronic 4. COPD (chronic obstructive pulmonary disease) Status: Chronic 5. Cigarette smoker Status: Chronic 6. CAD (coronary artery disease) Comments: Patient seen and agree with above note. (Stas Ramirez MD) at 0801 at 0820
[2017-05-20] MEDS ORDERED: METOPROLOL25 MG PO (08:23)
[2017-05-20 08:55] VITALS: BP 136/58
== END 2017-05-20 09:15 | disposition home or self-care (01) ==
LOC: ER 11:20 → 2ND 12:42
PROVIDERS: Emergency Medicine; Internal Medicine
PROC: B2111ZZ Fluoroscopy of Multiple Coronary Arteries using Low Osmolar Contrast (ICD-10-PCS; 2017-05-19)
PROC: B2151ZZ Fluoroscopy of Left Heart using Low Osmolar Contrast (ICD-10-PCS; 2017-05-19)
PROC: 4A033BC Measurement of Arterial Pressure, Coronary, Percutaneous Approach (ICD-10-PCS; 2017-05-19)
PROC: 4A023N7 Measurement of Cardiac Sampling and Pressure, Left Heart, Percutaneous Approach (ICD-10-PCS; principal; 2017-05-19 12:00)
DX: I25.119 Atherosclerotic heart disease of native coronary artery with unspecified angina pectoris (principal); Z72.0 Tobacco use; R55 Syncope and collapse; E11.9 Type 2 diabetes mellitus without complications; E03.9 Hypothyroidism, unspecified; Z79.4 Long term (current) use of insulin; J44.9 Chronic obstructive pulmonary disease, unspecified; R94.39 Abnormal result of other cardiovascular function study
CPT/HCPCS: C1725; C1760; C1769; G0378; J0153; J1644; Q9967

== ENCOUNTER → 2017-06-30 | Day surgery (SDC) | payer OTHER, MEDICARE ==
[2017-06-30 12:59] VITALS: BP 139/72
== END ==
LOC: SDC 09:32
PROC: 08RJ3JZ Replacement of Right Lens with Synthetic Substitute, Percutaneous Approach (ICD-10-PCS; principal; 2017-06-30)
DX: H26.9 Unspecified cataract (principal)

== ENCOUNTER 2017-07-14 07:47 | Day surgery (SDC) | payer OTHER, MEDICARE ==
[2017-07-14 09:49] VITALS: BP 128/90
== END 2017-07-14 09:45 | disposition home or self-care (01) ==
LOC: SDC 07:47
PROC: 08RK3JZ Replacement of Left Lens with Synthetic Substitute, Percutaneous Approach (ICD-10-PCS; principal; 2017-07-14)
DX: H26.9 Unspecified cataract (principal)